=== PATIENT | male | born 1965 | race Caucasian/White ===

== ENCOUNTER 2017-01-23 03:03 | Emergency (ER) | payer MEDICAID ==
[~2017-01-23] VITALS: Ht 160 cm; Wt 73.9 kg
[~2017-01-23 03:03] MED LIST: ALL300 PO; AMLO2.5T2 PO; ATOR80TA63 PO; BACL10TA PO; BENA20TA2 PO; CARV3.1246 PO; CLOP75TA32 PO; COLC0.6T67 PO; CYAN500L3 PO; DOCU-144 PO; FERR-69 PO; IND25 PO; LEVE500T13 PO; PYR50 GT
[2017-01-23 03:05] VITALS: BP 107/73; PULSE 75; RESP 18; TEMP 97.5; O2SAT 98
[2017-01-23] MEDS ORDERED: BACLOFEN 10 MG TABLET PO ONE (03:45)
[2017-01-23] MEDS ORDERED: ACETAMINOPHEN 325 MG TABLET PO ONE (03:45)
[2017-01-23] MEDS ORDERED: BACLOFEN 10 MG TABLET ONE (03:55)
[2017-01-23 04:40] VITALS: BP 101/68; PULSE 76; RESP 18; TEMP 97.5; O2SAT 98
== END 2017-01-23 04:40 | disposition home or self-care (01) ==
LOC: SED 03:03
DX: M54.5 Low back pain (principal); I10 Essential (primary) hypertension; E11.9 Type 2 diabetes mellitus without complications; G81.91 Hemiplegia, unspecified affecting right dominant side; Z86.79 Personal history of other diseases of the circulatory system; Z88.6 Allergy status to analgesic agent; Z88.5 Allergy status to narcotic agent; Z79.899 Other long term (current) drug therapy
CPT/HCPCS: 99283; J7030

== ENCOUNTER 2019-02-08 13:51 | Emergency (ER) | payer MEDICAID ==
[~2019-02-08] VITALS: Ht 167.6 cm; Wt 72.6 kg
[~2019-02-08 13:51] MED LIST changes: +ATOR-1 PO; -ATOR80TA63 PO; -BENA20TA2 PO; +BENA20TA9 PO; -LEVE500T13 PO; +LEVE500T9 PO
[2019-02-08 13:53] VITALS: BP_SYST 130
[2019-02-08 14:33] LABS: BASOPHILS % (AUTO) 1.4 % (0.0-2.0); HEMATOCRIT 38.9 % (36-54); HEMOGLOBIN 13.1 g/dL (14.0-18.0); LYMPHOCYTES # (AUTO) 0.7 K/uL (1.0-5.5); LYMPHOCYTES % (AUTO) 14.8 % (20.5-51.5); MEAN CORPUSCULAR HEMOGLOBIN 32 pg (27-31); MEAN CORPUSCULAR HGB CONC 34 % (32-36); MEAN CORPUSCULAR VOLUME 96 fL (79.0-98.0); MONOCYTES # (AUTO) 0.4 K/uL (0.0-1.0); MONOCYTES % (AUTO) 7.9 % (1.7-9.3); NEUTROPHILS # (AUTO) 3.5 K/uL (1.8-7.7); NEUTROPHILS % (AUTO) 74.9 % (40.0-70.0); PLATELET COUNT (AUTO) 135 K/uL (130-430); RED BLOOD CELL COUNT(AUTO) 4.06 MIL/uL (4.2-6.2); RED CELL DISTRIBUTION WIDTH 15.2 % (9.0-15.0); WHITE BLOOD COUNT (AUTO) 4.7 K/uL (4.8-10.8)
[2019-02-08 14:34] LABS: BASOPHILS # (AUTO) 0.1 K/uL (0.0-0.2)
[2019-02-08 14:46] LABS: PROTHROMBIN TIME 9.8 SECS (9.5-12.5)
[2019-02-08 14:50] LABS: CALCIUM 8.5 mg/dL (8.4-11.0); CREATININE 0.89 mg/dL (0.55-1.30); POTASSIUM 3.5 mmol/L (3.5-5.1)
[2019-02-08 14:55] LABS: ALBUMIN 3.7 g/dL (3.4-4.8); TOTAL BILIRUBIN 0.5 mg/dL (0.0-1.0)
[2019-02-08 16:06] VITALS: BP_SYST 130
== END 2019-02-08 16:06 | disposition home or self-care (01) ==
LOC: SED 13:51
DX: S53.402A Unspecified sprain of left elbow, initial encounter (principal); S43.402A Unspecified sprain of left shoulder joint, initial encounter; E11.9 Type 2 diabetes mellitus without complications; I10 Essential (primary) hypertension; Z79.01 Long term (current) use of anticoagulants; Z79.899 Other long term (current) drug therapy; Z86.79 Personal history of other diseases of the circulatory system; Z88.5 Allergy status to narcotic agent; Z88.6 Allergy status to analgesic agent; W06.XXXA Fall from bed, initial encounter; Y93.89 Activity, other specified; Y92.89 Other specified places as the place of occurrence of the external cause; Y99.8 Other external cause status
CPT/HCPCS: 36415; 73030; 80053; 85025; 85610-TC; 85730-TC; 99284

== ENCOUNTER 2022-12-09 10:39 | Emergency (ER) | payer MEDICAID ==
[~2022-12-09] VITALS: Ht 177.8 cm; Wt 72.6 kg
[~2022-12-09 10:39] MED LIST changes: +BENA-6 PO; -BENA20TA9 PO; -IND25 PO; +INDO-12 PO
--- NOTE | 2022-12-09 10:43 | NUR ---
PT BIBA AWAKE AND CONFUSED AOX2, NO SOB OR DISTRESS. PT FAMILY CALLED 911 AFTER WITNESSING A 10 SECOND SEIZURE AT HOME IN BED. PARAMEDICS DENIES FALL OR TRAUMA. PT HAS HX OF CVA AND HTN AND SEIZURE. PT TAKING KEPPRA MEDICATION.
[2022-12-09 10:44] VITALS: BP_SYST 106
--- NOTE | 2022-12-09 10:47 | NUR ---
MD DR PAUL AT BEDSIDE
[2022-12-09] MEDS ORDERED: LORazepam 2 MG/ML VIAL IVP ONE (11:00)
[2022-12-09] MEDS ORDERED: levETIRAcetam 500 MG in NS 100 ML IV ONE (11:00)
[2022-12-09 11:19] LABS: BASOPHILS # (AUTO) 0.1 K/uL (0.0-0.2); BASOPHILS % (AUTO) 1.1 % (0.0-2.0); EOSINOPHILS # (AUTO) 0.2 K/uL (0.0-0.4); EOSINOPHILS % (AUTO) 3.3 % (0.0-4.0); HEMATOCRIT 35.5 % (36-54); HEMOGLOBIN 11.8 g/dL (14.0-18.0); LYMPHOCYTES # (AUTO) 0.6 K/uL (1.0-5.5); LYMPHOCYTES % (AUTO) 11.2 % (20.5-51.5); MEAN CORPUSCULAR HEMOGLOBIN 32 pg (27-31); MEAN CORPUSCULAR HGB CONC 33 % (32-36); MEAN CORPUSCULAR VOLUME 96 fL (79.0-98.0); MONOCYTES # (AUTO) 0.7 K/uL (0.0-1.0); MONOCYTES % (AUTO) 12.8 % (1.7-9.3); NEUTROPHILS # (AUTO) 3.8 K/uL (1.8-7.7); NEUTROPHILS % (AUTO) 71.6 % (40.0-70.0); PLATELET COUNT (AUTO) 142 K/uL (130-430); RED CELL DISTRIBUTION WIDTH 16.6 % (9.0-15.0); WHITE BLOOD COUNT (AUTO) 5.3 K/uL (4.8-10.8)
[2022-12-09 11:32] LABS: CALCIUM 8.6 mg/dL (8.4-11.0); CREATININE 1.59 mg/dL (0.55-1.30)
[2022-12-09 11:37] LABS: ALBUMIN 3.6 g/dL (3.4-4.8); TOTAL BILIRUBIN 0.9 mg/dL (0.0-1.0)
[2022-12-09 12:20] LABS: INR 1.5 (0.80-1.20); PROTHROMBIN TIME 15.2 SECS (9.5-12.5)
[2022-12-09] MEDS ORDERED: DOCUSATE SODIUM 100 MG CAPSULE PO PRN (15:00)
[2022-12-09] MEDS ORDERED: INDOMETHACIN 25 MG CAPSULE(INDOCIN) PO PRN (15:00)
[2022-12-09] MEDS ORDERED: ATORVASTATIN 20 MG TABLET PO SCH (15:00)
[2022-12-09] MEDS ORDERED: amLODIPine BESYLATE 5 MG TABLET PO SCH (15:00)
[2022-12-09] MEDS ORDERED: ALLOPURINOL 300 MG TABLET (ZYLOPRIM) PO SCH (15:00)
[2022-12-09] MEDS ORDERED: COLCHICINE 0.6 MG TABLET PO SCH (15:00)
[2022-12-09] MEDS ORDERED: ASPIRIN 81 MG TAB.CHEW PO ONE (15:15)
[2022-12-09 19:32] VITALS: BP_SYST 125
--- NOTE | 2022-12-09 19:33 | NUR ---
Patient given written and verbal discharge instructions and verbalizes understanding. ER MD PAUL discussed with patient the results and treatment provided. Patient in stable condition. ID arm band removed. IV catheter removed intact and dressing applied, no active bleeding. Patient educated on pain management and to follow up with PMD. Pain Scale 0/10. Opportunity for questions provided and answered. Medication side effect fact sheet provided.
[2022-12-09] MEDS ORDERED: CARVEDILOL 3.125 MG TABLET (COREG) PO SCH (21:00)
[2022-12-09] MEDS ORDERED: levETIRAcetam 500 MG TABLET PO SCH (21:00)
[2022-12-10] MEDS ORDERED: CLOPIDOGREL BISULFATE 75 MG TABLET PO SCH (09:00)
[2022-12-10] MEDS ORDERED: BACLOFEN 10 MG TABLET PO SCH (09:00)
[2022-12-10] MEDS ORDERED: PYRIDOXINE HCL 50 MG TABLET GT SCH (09:00)
[2022-12-10] MEDS ORDERED: BENAZEPRIL HCL 20 MG TABLET (LOTENSIN) PO SCH (09:00)
== END 2022-12-09 14:00 | disposition home or self-care (01) ==
LOC: SED 10:39
DX: R56.9 Unspecified convulsions (principal); E11.9 Type 2 diabetes mellitus without complications; I10 Essential (primary) hypertension; Z88.5 Allergy status to narcotic agent; Z88.6 Allergy status to analgesic agent; Z79.899 Other long term (current) drug therapy; Z20.822 Contact with and (suspected) exposure to COVID-19
CPT/HCPCS: 99285; 96365; 70450; 96375; 87426; 80053; 85025; 85610; 36415; 76376; J1953; J2060